=== PATIENT | male | born 1965 | race Caucasian/White ===

== ENCOUNTER 2017-02-09 18:03 | Emergency (ER) | payer OTHER | END 2017-02-09 20:45 | disposition home or self-care (01) | LOC: D.ER 18:03 | DX: S92.001A Unspecified fracture of right calcaneus, initial encounter for closed fracture (principal); W19.XXXA Unspecified fall, initial encounter; Y93.89 Activity, other specified; Y92.029 Unspecified place in mobile home as the place of occurrence of the external cause; M79.671 Pain in right foot ==